=== PATIENT | female | born 1960 | race Caucasian/White ===

== ENCOUNTER → 2025-03-18 00:33 | Outpatient (BNV) | payer BC, SELFPAY | PROVIDERS: Visit Provider General Practice | DX: M54.2 Cervicalgia (principal); S09.90XA Unspecified injury of head, initial encounter; M25.532 Pain in left wrist; M79.642 Pain in left hand | CPT/HCPCS: 70450; 72125; 73110; 73120 ==

== ENCOUNTER 2025-03-18 00:53 | Emergency (ER) | payer BC, SELFPAY ==
--- NOTE | ~2025-03-18 | XR_ITS ---
CLINICAL HISTORY: fall, pain 3 view left hand Comparison: None provided Findings: No acute fracture or dislocation is identified. Soft tissue structures appear within normal limits. IMPRESSION: No acute osseous abnormality is identified. This document has been electronically signed by: Angela Mariano on 03/18/2025 07:28:51
--- NOTE | ~2025-03-18 | CT_ITS ---
CLINICAL HISTORY: fall with headstrike CT cervical spine without contrast Comparison: None provided Findings: There is mild straightening of the normal cervical lordosis with grade 1 anterolisthesis of C3 on C4. Moderate multilevel degenerative changes are present. The bones are osteopenic. Visualized intracranial contents are unremarkable. No cervical fluid collections or masses. Lung apices are clear. Atherosclerotic carotid bulb calcifications are present. IMPRESSION: No acute findings. This document has been electronically signed by: Mike Mac MD, PHD on 03/18/2025 02:41:57
--- NOTE | ~2025-03-18 | CT_ITS ---
CLINICAL HISTORY: fall with headstrike CT head without contrast Comparison: None provided Findings: No intra-axial mass, midline shift, hydrocephalus, or acute hemorrhage. 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 There is no sinus or mastoid fluid. The orbits are unremarkable. Left frontal scalp hematoma is present. No skull fracture. IMPRESSION: 1. No acute intracranial findings. This document has been electronically signed by: Mike Mac MD, PHD on 03/18/2025 02:37:58
--- NOTE | ~2025-03-18 | XR_ITS ---
CLINICAL HISTORY: fall, pain 4 view left wrist Comparison: None provided Findings: No acute fracture or dislocation is identified. Soft tissue structures appear within normal limits. IMPRESSION: No acute osseous abnormality is identified. This document has been electronically signed by: Angela Mariano on 03/18/2025 07:29:33
[2025-03-18 01:06] VITALS: BP 157/79; PULSE 91; RESP 18; TEMP 36.7; O2SAT 96; BMI 34.5
[2025-03-18 02:59] VITALS: BP 127/78; PULSE 75; RESP 16; TEMP 36.7; O2SAT 97
--- NOTE | 2025-03-18 05:38 | ED.FALL ---
HPI - Fall General Chief Complaint: Fall Stated Complaint: Fall Head Strike Time Seen by Provider: 03/18/25 05:38 Source: patient Mode of arrival: ambulatory Limitations: no limitations History of Present Illness ED Provider: Dr. Virgie Cortez HPI Narrative: 64 year old female with no signficant PMH presenting with facial trauma after tripping over her cat's bed at home. Fell onto the carpeted floor at her house. Hit her head on the ground. Did not lose consciousness. Bled profusely from a wound above her left eyebrow but denies other injury. No pain with jaw movement. Vision over the L eye is blurry from swelling around the eye. No painful eye movements. No use of anticoagulants. Also complaining of L hand pain. No numbness/tingling/weakness in the hand. Denies neck pain. Had been well prior to the fall. Did not feel dizzy before falling. Related Data Previous Rx's ?Medication ?Instructions ?Recorded cyclobenzaprine 10 mg tablet 10 mg PO TID #10 tabs 03/18/25 Allergies Allergy/AdvReac Type Severity Reaction Status Date / Time No Known Allergies Allergy Verified 03/18/25 01:08 Review of Systems Review of Systems: as per HPI, full review of systems performed and negative but for the above mentioned pertinent positives and negatives. [facility] Social History Social History Smoked in Last 30 Days: No Use of substances other than those prescribed or required for medical reasons: No Advance Directives: No Advance Directives Information Provided: Yes Do you have a plan to hurt others: No Plan Patient : No Physical Exam Exam: Exam: GENERAL: Uncomfortable-Appearing, conversant, mild distress due to pain. SKIN: Normal skin color for ethnicity, warm, dry, abrasion noted over the left eyebrow, bleeding stopped, no rashes noted. HEENT:? Normocephalic, left facial contusion overlying the orbit/eyebrow/temporal region, no stridor, airway patent, no raccoon's eyes, no Hurt sign, dentition intact, EOMI, PERRLA. NECK: Soft, supple, full ROM, midline structures nontender, no step-offs, no deformities, no lymphadenopathy. CHEST: Heart regular rate and rhythm, no murmurs, symmetric chest rise and fall, no crepitus. PULMONARY: Clear to auscultation bilaterally, no labored breathing, no wheezes/rhales/rhonchi. ABDOMINAL: Soft, nondistended, nontender, positive bowel sounds in all quadrants. : Deferred. MUSCULOSKELETAL: Normal tone, full range of motion, left hand contusion overlying the 2nd MCP joint, full function of the radial/median/ulnar nerves of the left hand, hypertonicity of the bilateral trapezius musculature. NEURO: Alert and oriented x3, CN II through XII intact, equal strength and sensation bilateral upper and lower extremities, no focal neurologic deficits.? PSYCHIATRIC: Anxious affect, fluid speech, good eye contact and appropriate demeanor. Vital Signs: Vital Signs: Last Vital Signs Temp 98.1 F 03/18/25 07:41 Pulse 75 03/18/25 07:41 Resp 16 03/18/25 07:41 BP 127/78 03/18/25 07:41 Pulse Ox 97 03/18/25 07:41 O2 Del Method Room Air 03/18/25 07:41 BMI result Body Mass Index 34.5 Medications Administered Discontinued Medications Generic Name Dose Route Start Last Admin Trade Name Freq PRN Reason Stop Dose Admin Acetaminophen 975 mg 03/18/25 05:45 03/18/25 06:08 Acetaminophen 325 Mg Tablet PO 03/18/25 05:46 975 mg ONCE ONE Administration Medical Decision Making Medical Decision Making [facility] Narrative: Patient presents today with chief complaint of trauma after a fall from standing. Different diagnosis on this patient includes intracranial hemorrhage, skull fracture, neck injury including fracture or spinal cord pathology, dental injury. Other diagnoses considered would include chest or abdominal trauma as well as long bone fractures. Based on my physical exam, [the ordered imaging modalities are indicated] [no further imaging is indicated at this time]. The patient specifically does not show any signs of central cord syndrome as evidenced by equal strength in the upper extremities with normal two-point discrimination. Sensation is not altered. GCS is appropriate. Patient is neurovascularly intact. There are no signs of vascular emergency. No signs of shock. No respiratory distress. Patient was given acetaminophen for pain control. Imgaging negative for fracture/head injury. Using shared decision making, plan for discharge home to follow-up with primary care and/or specialist.? Patient understands and agrees with plan for discharge.? Discharged home in stable condition. Differential Diagnosis Differential Diagnoses: The differential diagnosis associated with the presentation includes (as above) Admission/Observation Consideration of admission/observation: Escalation of care including admission/observation considered Radiology Impression Discussion of test interpretation with radiology: I have reviewed the radiologist's reading. Independent Historian Clinical information obtained from an independent historian. History obtained from or confirmed by: Other (son) Prescription Management I considered prescription management with: Pain Medication Discharge Plan Discharge Clinical Impression: Fall from ground level, Facial contusion, Closed head injury, Contusion of hand, left Patient Disposition: Home, Self-Care Instructions: Head Injury (ED), Contusion in Adults (ED) Additional Instructions: Try to rest as much as possible over the next several days. Use ice for swelling in your hand and face. Return to the emergency department immediately with any new or worsening symptoms including: Fevers greater than 100?, worsening headaches, numbness/tingling/weakness of your extremities, word-finding difficulty, passing out, any new symptom that concerns you. Call 911 with any medical emergency. Use [id number] pain medications such as Tylenol and Motrin for headaches. Use muscle relaxers (cyclobenzaprine) for muscle spasms in the neck or back. Do not drive while using cyclobenzaprine as it can make you drowsy. Prescriptions: New cyclobenzaprine 10 mg tablet 10 mg PO TID Qty: 10 0RF Interventions: ED Discharge Assessment Last Done: 03/18/25 07:41 Discharge Date/Time: 03/18/25 07:42 Print Language: Tamazight
[2025-03-18 07:41] VITALS: BP 127/78; PULSE 75; RESP 16; TEMP 36.7; O2SAT 97
== END 2025-03-18 07:42 | disposition home or self-care (01) ==
PROVIDERS: Emergency Provider Emergency Medicine
DX: S60.222A Contusion of left hand, initial encounter (principal); S09.90XA Unspecified injury of head, initial encounter; W01.0XXA Fall on same level from slipping, tripping and stumbling without subsequent striking against object, initial encounter; Y93.9 Activity, unspecified; Y92.9 Unspecified place or not applicable; Y99.9 Unspecified external cause status; M79.642 Pain in left hand; H53.8 Other visual disturbances
CPT/HCPCS: 70450; 72125; 73110; 73120; 99284